=== PATIENT | female | born 1990 | race Caucasian/White ===

== ENCOUNTER 2017-07-09 17:11 | Inpatient (IN) ==
[2017-07-09] MEDS ORDERED: hydrOXYzine pamoate 25 MG CAPSULE PO PRN (17:27)
[2017-07-09] MEDS ORDERED: *HR* LORazepam 2 MG/ML VIAL IM PRN (17:27)
[2017-07-09] MEDS ORDERED: MOM Conc 10 ML UD.LIQ PO PRN (17:27)
[2017-07-09] MEDS ORDERED: *HR* LORazepam 1 MG TABLET PO PRN (17:27)
[2017-07-09] MEDS ORDERED: Ibuprofen 400 MG TABLET PO PRN (17:27)
[2017-07-09] MEDS ORDERED: Mag Hydrox/Al Hydrox/Simeth 30 ML UDC PO PRN (17:27)
[2017-07-09] MEDS ORDERED: Ziprasidone 20 MG CAPSULE PO PRN (17:45)
[2017-07-09] MEDS ORDERED: Ziprasidone injection 20 MG/ML VIAL IM PRN (17:45)
[2017-07-10] MEDS ORDERED: cloNIDine HCl 0.1 MG TABLET PO PRN (11:26)
--- NOTE | 2017-07-10 11:38 | Psychiatry History & Physical ---
Date of Encounter: 07/10/17 Time of Encounter: 11:28 History of Present Illness Patient Stated Chief Complaint: suicidal ideation Medicare Admission Attestation: For traditional Medicare patients the provided hospital inpatient services are reasonable and necessary and in the case of services not specified as inpatient -only under 42 CFR 419.22 (n), that they are appropriately provided as inpatient services in accordance 42 CFR 412.3. For Critical Access Hospital the patient may reasonably be expected to be discharged or transferred to a hospital within 96 hours after admission to the Critical Access Hospital. Admitted From: Home Plans for Post Hospital Care: Home History of Present Illness: Ms. Madrid is a 26 year old female who was admitted after she wrapped a sheet around her neck in the ER. Client presented to the ER from [facility]. Client states she is there secondary to her heroin addiction. Client is denying SI today and states she attempted suicide in the ER "to get their attention." Client states she felt the ER was not working to get her placed and that she felt she had to do something drastic. Client states she was never in danger and that she could have removed the sheet herself but wanted staff to act faster. Client endorses AH but does not appear psychotic. Restless. Rocking. Seems to be going through a normal withdrawal period. Has not used since May so acute withdrawals have passed but it will be a while before she feels good. Client is definitely seeking meds for anxiety relief. Irritated she cannot take Seroquel. She is unsure if she wants to return to [facility]. Her bed is being held for her currently. Client has been hospitalized multiple times for SI. James states she has overdosed, cut herself , and hung herself in the past. Unclear if these were legitimate attempts or gestures. Tends to have impulsive behaviors. Does not appear outwardly depressed. She has been out socializing on the unit. Eating well. Sleep has been poor and likely secondary to AOD withdrawal. Looks physically healthy but she has been diagnosed with Hep B and Hep C in the past. Discussed med options and client agreed to Risperdal, Clonidine, and Vistaril. Do not anticipate this will be a long inpatient stay. Past Med Surg Social Fam HX - Past Medical History Medical history: DVT, hepatitis - Past Psychiatric History Psychiatric history: Reports: anxiety, bipolar, depression, PTSD, prior suicide attempt, previous psychiatric hospitalization Family psychiatric history: Unknown Family History of Suicide: Unknown - Past Surgical History Surgical History: cholecystectomy - Social History Smoking Status: Current every day smoker Smokeless Tobacco Status: No Alcohol use: none Drug use: cocaine, IV Drug Use, other Medications & Allergies No Known Home Drugs 07/07/17 [History] 3 Allergy/AdvReac Type Severity Reaction Status Date / Time haloperidol [From Haldol] Allergy Swelling Verified 07/08/17 09:28 of Lip/Tongue/Throat Review of Systems Constitutional: Denies: fever, chills, weakness, weight change Eyes: Denies: eye pain, vision change Ears, Nose, Throat: Denies: ear pain, throat pain, dental pain, hearing loss, congestion Cardiovascular: Denies: chest pain, palpitations, dyspnea on exertion Respiratory: Denies: cough, dyspnea, wheezes Gastrointestinal: Denies: abdominal pain, nausea, vomiting, diarrhea, constipation Genitourinary male: Denies: urgency, dysuria, frequency, genital lesions Genitourinary female: Denies: urgency, dysuria, frequency, abnormal menses, dyspareunia Musculoskeletal: Denies: joint swelling, joint pain Integumentary: Denies: rash, lesions, pruritus Neurological: Denies: headache, weakness, numbness, memory loss Endocrine: Denies: fatigue, heat or cold intolerance Hematologic/Lymphatic: Denies: easy bruising, lymphadenopathy Allergic/Immunologic: Denies: urticaria, itchy eyes Mental Status Exam Patient orientation: Yes Person, Yes Time, Yes Place Level of alertness: Alert Patient appearance: Appropriate, Well Groomed Behavior: calm, cooperative Psychomotor activity: Increased Eye contact: Maintains Eye Contact Mood description: Depressed Affect description: full range Speech pattern: Normal rate, Normal rhythm, Normal tone Speech volume: Normal Thought process: Linear, Goal Oriented Thought content: No Suicidal ideation, No Homicidal ideation, No Overt delusions Perceptual disturbances: No Reacting to internal stimuli, Yes Auditory hallucinations Attention span: Capable of Focused Attention Memory description: Grossly Intact Patient reliability: Reliable Historian Intelligence estimate: Average Judgment: Limited Insight: Partial Exam - HEENT Head exam IM: Present: atraumatic Eye exam IM: Present: EOMI - Neurological Neurological exam IM: Present: alert - Respiratory Respiratory exam IM: Present: CTAB - GI/Abdominal GI/Abdominal exam IM: Present: normal bowel sounds - Extremities Extremities exam IM: Present: full ROM - Skin Skin exam IM: Present: normal color Results - Vital Signs Vital signs: Temp Pulse Resp BP 97.8 F 90 16 117/82 07/10/17 09:00 07/10/17 09:00 07/10/17 09:00 07/10/17 09:00 Assessment and Plan (1) Substance induced mood disorder Current visit: Yes Status: Acute Plan: Admit inpatient for safety and stabilization, Close observation, Suicide Precautions per unit protocol, Encourage participation in unit milieu, Group Therapy, Monitor sleep, Monitor appetite Risks, benefits, side effects, alternatives discussed w/pt: Yes Patient agreeable to treatment: Yes Plans for Post Hospital Care: Home Estimated Length of Stay (Days): 3
[2017-07-10] MEDS: hydrOXYzine pamoate 25 MG CAPSULE PO PRN ×2 (14:00→21:17)
[2017-07-10] MEDS ORDERED: Nicotine 2 MG GUM BC PRN (18:41)
[2017-07-10] MEDS: risperiDONE 1 MG TABLET PO SCH (21:17)
[2017-07-11] MEDS: risperiDONE 1 MG TABLET PO SCH (09:08)
[2017-07-11 09:49] VITALS: BP 119/81
--- NOTE | 2017-07-11 11:04 | Discharge Summary ---
Date of Encounter: 07/11/17 Time of Encounter: 11:01 Diagnosis - Discharge Diagnosis (1) Substance induced mood disorder Status: Acute Medications - Discharge Medications Prescriptions: cloNIDine HCl [CloNIDine HCl] 0.1 mg PO TID PRN #60 tablet PRN Reason: Agitation hydrOXYzine pamoate [HydrOXYzine Pamoate] 50 mg PO TID PRN #180 capsule PRN Reason: Anxiety risperiDONE [RisperDAL] 1 mg PO BID #60 tablet cloNIDine HCl [CloNIDine HCl] 0.1 mg PO TID PRN #60 tablet 07/11/17 [Rx] hydrOXYzine pamoate [HydrOXYzine Pamoate] 50 mg PO TID PRN #180 capsule [Rx] risperiDONE [RisperDAL] 1 mg PO BID #60 tablet 07/11/17 [Rx] 3 Allergy/AdvReac Type Severity Reaction Status Date / Time haloperidol [From Haldol] Allergy Swelling Verified 07/08/17 09:28 of Lip/Tongue/Throat Provider Date of admission: 07/09/17 17:11 Primary care physician: PCP NONE Discharging clinician: Jessica Joy Assessment and Plan - Patient/Caregiver Discharge Instructions Activity: resume usual activities as tolerated Diet: regular diet - Follow up Plan Follow up with: NONE,PCP [Primary Care Provider] - Functional capacity at discharge: independent ambulation Overall status at discharge: Stable Disposition: Home, Self-Care Hospital Course Hospital course: Ms. Madrid is a 26 year old female who presented to the ER from [facility] rehab secondary to SI. Tied a sheet around her neck in the ER. Client states she did this in order to make staff work faster at placing her. Client has been bright, happy, and social since arriving on [facility]. She initially endorsed AH but never appeared psychotic and eventually stopped mentioning voices. Client was very med seeking and particularly wanted medications she knew could not be prescribed in a rehab setting. Client eventually agreed to a combination of Vistaril, Clonidine, and Risperdal. Ultimately decided she did not want to return to [facility]. Elected instead to go back to [place] and relink with [facility]. Appointments were made for her at [facility] prior to discharge. Family from [place] agreed to cook pickled meat client and house her. Client was denying SI/HI/ AH/VH at the time of discharge. She was upbeat and animated. She was eating and sleeping well. She expressed feeling happy. - Time Spent with Patient Total time spent providing and/or coordinating discharge services: Quality - Multiple Antipsychotics Patient discharged on 2 or more antipsychotic medications: No Procedures - Procedures Procedures: Medication Management, Crisis Stabilization, Supportive Therapy, Group Therapy Mental Status Exam - Mental Status Exam Patient orientation: Yes Person, Yes Time, Yes Place Level of alertness: Alert Patient appearance: Appropriate Behavior: calm, cooperative Psychomotor activity: Normal Eye contact: Maintains Eye Contact Mood description: Euthymic/stable Affect description: congruent with mood, full range Speech pattern: Normal rate, Normal rhythm, Normal tone Speech Volume: Normal Thought process: Linear, Goal Oriented Thought Content: No Suicidal ideation, No Homicidal ideation, No Overt delusions Perceptual Disturbances: No Auditory hallucinations, No Visual hallucinations Judgment: Limited Insight: Partial
== END 2017-07-11 11:50 | disposition home or self-care (01) | DRG 773 ==
LOC: 1ANU 17:11
PROVIDERS: ADMIT Psychiatry & Neurology Psychiatry; ATTEND Psychiatry & Neurology Psychiatry

== ENCOUNTER 2020-06-21 20:28 | Observation (INO) ==
[2020-06-21] MEDS ORDERED: *HR* LORazepam 2 MG/ML VIAL IVP ONE (22:50)
[2020-06-21 22:54] LABS: Hemoglobin 10.7 g/dL (11.5-15.4); Immature Granulocytes % 0.2 % (0-4); Mean Corpuscular Hemoglobin 22.8 pg (28.0-33.3)
[2020-06-21] MEDS ORDERED: Isovue-370 500 ML BOTTLE IVP ONE (22:55)
[2020-06-21 22:56] LABS: Basophils # 0.1 K/mcL (0.0-0.2); Basophils % 0.5 %; Eosinophils # 0.2 K/mcL (0.0-0.6); Hematocrit 35.8 % (35.3-44.9); Immature Platelets 10.5 % (1.1-6.1); Lymphocytes # 2.6 K/mcL (0.6-4.6); Mean Corpuscular HGB Conc 29.9 g/dL (31.6-35.5); Mean Corpuscular Volume 76.2 fL (83.0-100.0); Mean Platelet Volume 11.7 fL (9.4-12.4); Monocytes # 0.7 K/mcL (0.0-1.3); Monocytes % 7.4 %; Neutrophils # 5.7 K/mcL (1.6-8.9); Platelet Count 214 K/mcL (140-400); Segmented Neutrophils % 61.9 %; White Blood Count 9.2 K/mcL (4.3-11.1)
[2020-06-21] MEDS ORDERED: 0.9 % Sodium Chloride 1,000 ML IVC ONE (22:56)
[2020-06-21 23:17] LABS: Alanine Aminotransferase 26 Units/L (7-52); Albumin/Globulin Ratio 1.3 (1.1-2.2); Alkaline Phosphatase 62 Units/L (34-104); Aspartate Amino Transferase 19 Units/L (13-39); BUN/Creatinine Ratio 12 (6-26); Bilirubin,Total 0.3 mg/dL (0.3-1.0); Blood Urea Nitrogen 10 mg/dL (6-20); C-Reactive Protein 44 mg/L (Less than 10); Calcium 9.1 mg/dL (8.6-10.3); Carbon Dioxide 27 mEq/L (23-29); Chloride 104 mEq/L (98-107); Glucose 85 mg/dL (70-105); Osmolality,Calculated 284 (280-300); Potassium 3.7 mEq/L (3.5-5.1); Sodium 138 mEq/L (136-145); eGFR For African Americans > 60 (> 60); eGFR For Non-African Americans > 60 (> 60)
[2020-06-21 23:32] LABS: Bacteria,Urine Few per hpf (None-Few); Bilirubin,Urine Negative (Negative); Blood,Urine Trace (Negative); Clarity,Urine Turbid (Clear); Color,Urine Yellow (Yellow); Glucose,Urine (UA) Normal (Normal); Ketones,Urine Negative (Negative); Leukocyte Esterase,Urine Trace (Negative); Mucus,Urine Few per lpf (None-Few); Nitrite,Urine Negative (Negative); PH,Urine 6.5 pH Units (5.0-8.0); Protein,Urine 70 mg/dL (Neg-Trace); RBC,Urine 0-3 per hpf (0-3); Specific Gravity,Urine > 1.030 (1.010-1.025); Squamous Epithelial Cell,Urine Moderate per hpf (None-Few)
[2020-06-22] MEDS ORDERED: *HR* FentaNYL (PF) 100 MCG/2 ML VIAL IVP ONE (01:19)
[2020-06-22] MEDS ORDERED: WATER FOR INJ IM ONE (02:06)
[2020-06-22] MEDS ORDERED: ZIPRASIDONE IM ONE (02:06)
[2020-06-22] MEDS ORDERED: *HR* OxyCODONE Immed Rel 5 MG TABLET PO ONE (02:08)
[2020-06-22] MEDS ORDERED: Ondansetron ODT 4 MG TAB.RAPDIS SL PRN ×2 (03:15→17:22)
[2020-06-22] MEDS ORDERED: Acetaminophen 325 MG TABLET PO PRN (03:15)
[2020-06-22] MEDS ORDERED: Naloxone 0.4 MG/ML INJ IVP PRN ×2 (03:15→17:22)
[2020-06-22 06:06] LABS: Hematocrit 38.2 % (35.3-44.9); Red Cell Distribution Width 18.3 % (11.5-14.5)
[2020-06-22 06:09] LABS: Basophils # 0.1 K/mcL (0.0-0.2); Basophils % 0.7 %; Eosinophils # 0.3 K/mcL (0.0-0.6); Eosinophils % 2.5 %; Hemoglobin 11.3 g/dL (11.5-15.4); Immature Granulocytes % 0.4 % (0-4); Immature Platelets 13.2 % (1.1-6.1); Lymphocytes % 29.4 %; Mean Corpuscular HGB Conc 29.6 g/dL (31.6-35.5); Mean Corpuscular Hemoglobin 22.6 pg (28.0-33.3); Mean Corpuscular Volume 76.2 fL (83.0-100.0); Monocytes # 0.7 K/mcL (0.0-1.3); Monocytes % 6.9 %; Neutrophils # 6.1 K/mcL (1.6-8.9); Platelet Count 211 K/mcL (140-400); Red Blood Count 5.01 M/mcL (3.82-4.97); Segmented Neutrophils % 60.1 %; White Blood Count 10.1 K/mcL (4.3-11.1)
[2020-06-22 06:24] LABS: BUN/Creatinine Ratio 13 (6-26); Blood Urea Nitrogen 9 mg/dL (6-20); Calcium 9.4 mg/dL (8.6-10.3); Carbon Dioxide 22 mEq/L (23-29); Chloride 102 mEq/L (98-107); Glucose 96 mg/dL (70-105); Magnesium 2.1 mg/dL (1.6-2.6); Osmolality,Calculated 277 (280-300); Phosphorous 2.7 mg/dL (2.7-4.5); Potassium 3.9 mEq/L (3.5-5.1); Sodium 134 mEq/L (136-145); eGFR For African Americans > 60 (> 60); eGFR For Non-African Americans > 60 (> 60)
[2020-06-22] MEDS: Baclofen 10 MG TABLET PO SCH ×2 (08:15→15:13)
[2020-06-22] MEDS: Clindamycin 600 MG/50 ML 600 MG/50 ML IV.SOLN IVPB SCH ×3 (08:15→15:18)
[2020-06-22] MEDS: cloNIDine HCL 0.1 MG TABLET PO SCH ×2 (08:15→15:13)
[2020-06-22] MEDS: Ketorolac 15 MG/ML VIAL IVP SCH ×2 (08:19→13:04)
[2020-06-22] MEDS ORDERED: *HR* LORazepam 2 MG/ML VIAL IVP PRN ×2 (08:32→17:22)
[2020-06-22] MEDS ORDERED: *HR* Enoxaparin 40 MG/0.4 ML SYRINGE SQ SCH (09:00)
[2020-06-22] MEDS ORDERED: FLUoxetine 20 MG CAPSULE PO SCH (09:00)
[2020-06-22] MEDS ORDERED: Vancomycin 1,500 MG/265 ML IV.SOLN IVPB ONE (11:00)
[2020-06-22] MEDS ORDERED: 0.9 % Sodium Chloride 1,000 ML IVC SCH ×2 (12:45→17:22)
[2020-06-22] MEDS ORDERED: *HR* FentaNYL (PF) 100 MCG/2 ML VIAL IVP PRN ×2 (13:06→17:22)
[2020-06-22] MEDS ORDERED: *HR* HYDROmorphone PF 0.5 MG/0.5 ML SYRINGE IVP PRN ×2 (13:06→17:22)
[2020-06-22] MEDS ORDERED: *HR* Midazolam HCl 2 MG/2 ML VIAL IVP PRN ×2 (13:06→17:22)
[2020-06-22] MEDS ORDERED: *HR* Propofol 200 MG/20 ML VIAL IVP ONE ×2 (13:50→16:12)
[2020-06-22 14:31] LABS: Amphetamine Screen,Urine Negative ng/mL (Cutoff=1000); Barbiturate Screen,Urine Negative ng/mL (Cutoff=200); Benzodiazepines Screen,Urine Negative ng/mL (Cutoff=200); Cannabinoid Screen,Urine Positive ng/mL (Cutoff = 50); Cocaine Screen,Urine Positive ng/mL (Cutoff= 300); Opiate Screen,Urine Negative ng/mL (Cutoff=300); Phencyclidine Screen,Urine Negative ng/mL (Cutoff=25)
[2020-06-22] MEDS ORDERED: Vancomycin 1,000 MG VIAL ONE (14:35)
[2020-06-22 15:32] LABS: Adenovirus Not Detected (Not Detect); Bordetella Pertussis Not Detected (Not Detect); Chlamydophila pneumoniae Not Detected (Not Detect); Coronavirus 229E Not Detected (Not Detect); Coronavirus HKU1 Not Detected (Not Detect); Coronavirus NL63 Not Detected (Not Detect); Coronavirus OC43 Not Detected (Not Detect); Human Metapneumovirus Not Detected (Not Detect); Human Rhinovirus/Enterovirus Not Detected (Not Detect); Influenza A Subtype 2009 H1 Not Detected (Not Detect); Influenza B Not Detected (Not Detect); Mycoplasma pneumoniae Not Detected (Not Detect); Parainfluenza Virus 1 Not Detected (Not Detect); Parainfluenza Virus 2 Not Detected (Not Detect); Parainfluenza Virus 3 Not Detected (Not Detect); Parainfluenza Virus 4 Not Detected (Not Detect); Respiratory Syncytial Virus Not Detected (Not Detect); SARS-CoV-2 Not Detected (Not Detect)
[2020-06-22] MEDS ORDERED: *HR* FentaNYL (PF) 100 MCG/2 ML VIAL ONE (16:18)
[2020-06-22 17:11] VITALS: BP 123/83
[2020-06-22] MEDS ORDERED: Ketorolac 15 MG/ML VIAL IVP SCH (18:00)
[2020-06-22] MEDS ORDERED: QUEtiapine Fumarate 300 MG TABLET PO SCH ×2 (21:00)
[2020-06-22] MEDS ORDERED: cloNIDine HCL 0.1 MG TABLET PO SCH (21:00)
[2020-06-22] MEDS ORDERED: Baclofen 10 MG TABLET PO SCH (21:00)
[2020-06-22] MEDS ORDERED: Vancomycin 1,250 MG/262.5 ML IV.SOLN IVPB SCH ×2 (23:00)
[2020-06-23] MEDS ORDERED: Clindamycin 600 MG/50 ML 600 MG/50 ML IV.SOLN IVPB SCH
[2020-06-23] MEDS ORDERED: *HR* Enoxaparin 40 MG/0.4 ML SYRINGE SQ SCH (09:00)
[2020-06-23] MEDS ORDERED: FLUoxetine 20 MG CAPSULE PO SCH (09:00)
== END 2020-06-22 17:40 | disposition left against medical advice (07) ==
LOC: 3NENU 20:28 → EMEROOARM 20:28 → 3NENU 06-22 03:35 → 3ANU 06-22 17:18
PROVIDERS: ADMIT Student in an Organized Health Care Education/Training Program; ATTEND Student in an Organized Health Care Education/Training Program

== ENCOUNTER 2020-06-22 18:07 | Observation (INO) ==
[2020-06-22] MEDS ORDERED: Ondansetron ODT 4 MG TAB.RAPDIS SL ONE (18:44)
[2020-06-22] MEDS ORDERED: Vancomycin 1,500 MG/265 ML IV.SOLN IVPB ONE (19:30)
[2020-06-22 20:24] LABS: Basophils % 0.4 %; Eosinophils # 0.2 K/mcL (0.0-0.6); Eosinophils % 1.8 %; Hematocrit 33.2 % (35.3-44.9); Hemoglobin 10.2 g/dL (11.5-15.4); Immature Granulocytes % 0.4 % (0-4); Lymphocytes # 1.7 K/mcL (0.6-4.6); Lymphocytes % 17.6 %; Mean Corpuscular HGB Conc 30.7 g/dL (31.6-35.5); Mean Corpuscular Hemoglobin 23.7 pg (28.0-33.3); Mean Platelet Volume 11.2 fL (9.4-12.4); Monocytes # 0.6 K/mcL (0.0-1.3); Monocytes % 6.7 %; Neutrophils # 6.9 K/mcL (1.6-8.9); Platelet Count 226 K/mcL (140-400); Red Blood Count 4.31 M/mcL (3.82-4.97); Red Cell Distribution Width 17.8 % (11.5-14.5); Segmented Neutrophils % 73.1 %; White Blood Count 9.4 K/mcL (4.3-11.1)
[2020-06-22 20:46] LABS: BUN/Creatinine Ratio 15 (6-26); Blood Urea Nitrogen 7 mg/dL (6-20); Calcium 8.9 mg/dL (8.6-10.3); Carbon Dioxide 26 mEq/L (23-29); Chloride 105 mEq/L (98-107); Glucose 102 mg/dL (70-105); Osmolality,Calculated 280 (280-300); Potassium 3.8 mEq/L (3.5-5.1); Sodium 136 mEq/L (136-145); eGFR For African Americans > 60 (> 60); eGFR For Non-African Americans > 60 (> 60)
[2020-06-22] MEDS ORDERED: Naloxone 0.4 MG/ML INJ IVP PRN (23:41)
[2020-06-22] MEDS ORDERED: Ondansetron ODT 4 MG TAB.RAPDIS SL PRN (23:41)
[2020-06-22] MEDS ORDERED: Ketorolac 30 MG/ML VIAL IVP PRN (23:41)
[2020-06-23] MEDS ORDERED: Vancomycin 1,250 MG/262.5 ML IV.SOLN IVPB SCH ×2 (01:00→04:00)
[2020-06-23] MEDS ORDERED: QUEtiapine Fumarate 300 MG TABLET PO SCH ×2 (01:00→21:00)
[2020-06-23 01:52] LABS: Hematocrit 32.3 % (35.3-44.9); Hemoglobin 9.9 g/dL (11.5-15.4); Immature Platelets 9.6 % (1.1-6.1); Mean Corpuscular HGB Conc 30.7 g/dL (31.6-35.5); Mean Corpuscular Hemoglobin 22.9 pg (28.0-33.3); Mean Corpuscular Volume 74.6 fL (83.0-100.0); Mean Platelet Volume 12.2 fL (9.4-12.4); Red Blood Count 4.33 M/mcL (3.82-4.97); Red Cell Distribution Width 17.9 % (11.5-14.5); White Blood Count 9.2 K/mcL (4.3-11.1)
[2020-06-23 01:58] LABS: BUN/Creatinine Ratio 11 (6-26); Blood Urea Nitrogen 5 mg/dL (6-20); Carbon Dioxide 26 mEq/L (23-29); Chloride 107 mEq/L (98-107); Potassium 4.1 mEq/L (3.5-5.1); Sodium 138 mEq/L (136-145); eGFR For African Americans > 60 (> 60)
[2020-06-23 01:59] LABS: Calcium 8.8 mg/dL (8.6-10.3); Glucose 96 mg/dL (70-105); Osmolality,Calculated 283 (280-300); eGFR For Non-African Americans > 60 (> 60)
[2020-06-23] MEDS ORDERED: *HR* OxyCODONE Immed Rel 5 MG TABLET PO PRN ×5 (05:57→14:56)
[2020-06-23] MEDS ORDERED: *HR* HYDROmorphone PF 0.5 MG/0.5 ML SYRINGE IVP PRN ×2 (07:14→12:07)
[2020-06-23] MEDS ORDERED: Ondansetron 4 MG/2 ML VIAL IVP PRN ×2 (07:14→12:07)
[2020-06-23] MEDS ORDERED: Clindamycin 600 MG/50 ML 600 MG/50 ML IV.SOLN IVPB SCH ×2 (08:00→16:00)
[2020-06-23] MEDS ORDERED: FLUoxetine 20 MG CAPSULE PO SCH (09:00)
[2020-06-23] MEDS ORDERED: cloNIDine HCL 0.1 MG TABLET PO SCH (09:00)
[2020-06-23] MEDS ORDERED: *HR* Propofol 200 MG/20 ML VIAL IVP ONE (09:19)
[2020-06-23] MEDS ORDERED: *HR* Midazolam HCl 2 MG/2 ML VIAL ONE (10:01)
[2020-06-23] MEDS ORDERED: *HR* Succinylcholine 200 MG/10 ML VIAL IVP ONE (10:01)
[2020-06-23] MEDS ORDERED: *HR* Rocuronium Bromide 50 MG/5 ML VIAL ONE (10:01)
[2020-06-23] MEDS ORDERED: Lidocaine -MPF 2% 2 ML VIAL ONE (10:01)
[2020-06-23] MEDS ORDERED: *HR* FentaNYL (PF) 100 MCG/2 ML VIAL ONE ×2 (10:02→11:04)
[2020-06-23] MEDS ORDERED: ceFAZolin 1,000 MG, Sodium Chloride IRRigation 1,000 ML IR ONE ×2 (10:30→12:07)
[2020-06-23] MEDS ORDERED: Ondansetron 4 MG/2 ML VIAL ONE (10:58)
[2020-06-23] MEDS ORDERED: Ondansetron ODT 4 MG TAB.RAPDIS SL PRN (12:07)
[2020-06-23] MEDS ORDERED: Ketorolac 30 MG/ML VIAL IVP PRN (12:07)
[2020-06-23] MEDS ORDERED: Naloxone 0.4 MG/ML INJ IVP PRN (12:07)
[2020-06-23] MEDS: Vancomycin 1,250 MG/262.5 ML IV.SOLN IVPB SCH ×2 (14:28→14:51)
[2020-06-23 14:45] VITALS: BP 154/98
[2020-06-23 15:49] LABS: Amphetamine Screen,Urine Negative ng/mL (Cutoff=1000); Barbiturate Screen,Urine Negative ng/mL (Cutoff=200); Benzodiazepines Screen,Urine Positive ng/mL (Cutoff=200); Cannabinoid Screen,Urine Positive ng/mL (Cutoff = 50); Cocaine Screen,Urine Negative ng/mL (Cutoff= 300); Opiate Screen,Urine Negative ng/mL (Cutoff=300); Phencyclidine Screen,Urine Negative ng/mL (Cutoff=25)
[2020-06-23] MEDS ORDERED: Ketorolac 30 MG/ML VIAL IVP SCH (19:00)
[2020-06-24] MEDS ORDERED: FLUoxetine 20 MG CAPSULE PO SCH (09:00)
== END 2020-06-23 15:33 | disposition left against medical advice (07) ==
LOC: EMEROOARM 18:07 → 3ANU 18:07
PROVIDERS: ADMIT Internal Medicine; ATTEND Internal Medicine